=== PATIENT | female | born 1985 | race Caucasian/White ===

== ENCOUNTER 2017-11-24 18:05 | Inpatient (IN) | payer OTHER ==
[2017-11-24 20:46] VITALS: BMI 23.9
--- NOTE | 2017-11-24 20:59 | OBADHP ---
Datetime: 11/24/2017 20:55 Admit Comment, IP Provider: wiht IUP at 38+1 weeks, decreased movement, irreg contraction s primigravida GDMA1 - diet controlled denies family hx denies surg hx NKDA taking prenatals denies smoking drinking or drug use A/P: IUP at 38+1, decreased movement, GDMA1 IOL with cervidil fingersticks Q4 and insulin if needed EFM/TOCO/IVF/NPO plan of care discussed with patients private physician, Dr. Lena Gonzalez Pelvic Type - PN: Adequate Extremities - PN: Not Done Abdomen - PN: Normal Back - PN: Not Done Breast - PN: Not Done Lungs - PN: Not Done Heart - PN: Not Done Thyroid - PN: Not Done Neurologic - PN: Not Done HEENT - PN: Not Done General - PN: Normal Gestation - Est Wks by US: 38+1 Vital Signs Provider: Reviewed; Within Normal Limits IP Chief Complaint: Uterine contractions; Decreased movement FHR Category Provider Fetus A: Category I Genitourinary Exam: Normal DTRs - PN: Not Done EGA AdmitDate IP: 38.1 IP Adm Impression: Term, intrauterine IP Admit Plan: Admit to unit; Initiate labor induction protocol
[2017-11-24 21:41] LABS: HEMOGLOBIN 13.3 g/dL (11.0-16.0); MEAN CELL VOLUME 86.7 fL (81.0-99.0); MEAN CORPUSCULAR HEMOGLOBIN 29.3 pg (27.0-31.0); MEAN CORPUSCULAR HGB CONC 33.8 g/dL (33.0-37.0); MEAN PLATELET VOLUME 8.7 fL (7.2-11.7); RBC 4.55 Mil/uL (3.80-5.20); RED CELL DISTRIBUTION WIDTH 14.6 % (11.5-14.5); WHITE BLOOD COUNT 7.1 K/uL (4.8-10.8)
[2017-11-24 21:46] LABS: SQUAMOUS EPITHIAL 1 /hpf (0-5); URINE BACTERIA OCC (<OCC); URINE BILIRUBIN NEGATIVE (NEGATIVE); URINE CLARITY Clear (Clear); URINE COLOR Straw (YELLOW); URINE GLUCOSE (UA) 1+ mg/dL (Normal); URINE PROTEIN NEGATIVE (NEGATIVE); URINE UROBILINOGEN NORMAL mg/dL (0.2-1.0)
[2017-11-24 21:47] LABS: URINE BLOOD 1+ (NEGATIVE); URINE LEUKOCYTE ESTERASE TRACE Leu/uL (Negative)
[2017-11-24 21:52] LABS: ALB/GLOB RATIO 1.3 (1.0-2.1); ALBUMIN 3.6 g/dL (3.5-5.0); ALT/SGPT 20 U/L (9-52); AST/SGOT 18 U/L (14-36); BLOOD UREA NITROGEN 12 mg/dL (7-17); CALCIUM 9.5 mg/dl (8.6-10.4); GFR NON-AFRICAN AMERICAN > 60
[2017-11-24] MEDS ORDERED: Lactated Ringer's 1,000 ML IV SCH (22:15)
[2017-11-25] MEDS ORDERED: Nalbuphine HCL 10 mg/ml Ampule IVP ONE (01:31)
[2017-11-25] MEDS ORDERED: DiphenhydrAMINE 50 mg/ml Inj IVP STA (01:35)
[2017-11-25] MEDS ORDERED: Nalbuphine HCL 10 mg/ml Ampule ONE (01:41)
[2017-11-25] MEDS ORDERED: Bupivacaine HCl/FentaNYL Cit 100 ML EPI ONE (04:26)
[2017-11-25] MEDS ORDERED: Oxytocin 30 UNIT 30 UNITS/500 ML BAG IV SCH (08:00)
[2017-11-25] MEDS ORDERED: Oxytocin 30 UNIT 30 UNITS/500 ML BAG IV ONE (09:12)
--- NOTE | 2017-11-25 10:12 | OBHP ---
Datetime: 11/25/2017 10:10 Presentation-Admit: Vertex FHR - Baseline A Provider: 150 Amniotic Fluid Color, Provider: Clear Membranes, Provider: Ruptured Gestation - Est Wks by US: 38.2 Vital Signs Provider: Reviewed; Within Normal Limits NICHD Variability Prov Fetus A: Moderate 6-25bpm FHR Category Provider Fetus A: Category I NICHD Decel Fetus A IP Provider: None Dilatation, Provider: 6 Effacement, Provider: 90 Station, Provider: -1 Datetime: 11/24/2017 20:55 IP Adm Impression: Term, intrauterine IP Admit Plan: Admit to unit; Initiate labor induction protocol Admit Comment, IP Provider: wiht IUP at 38+1 weeks, decreased movement, irreg contraction s primigravida GDMA1 - diet controlled denies family hx denies surg hx NKDA taking prenatals denies smoking drinking or drug use A/P: IUP at 38+1, decreased movement, GDMA1 IOL with cervidil fingersticks Q4 and insulin if needed EFM/TOCO/IVF/NPO plan of care discussed with patients private physician, Dr. Lena Gonzalez agree wtih above gdma with increaisng blod sugars adn decreased movments admit for cervid pain magnmetn Pelvic Type - PN: Adequate Extremities - PN: Not Done Abdomen - PN: Normal Back - PN: Not Done Breast - PN: Not Done Lungs - PN: Not Done Heart - PN: Not Done Thyroid - PN: Not Done Neurologic - PN: Not Done HEENT - PN: Not Done General - PN: Normal EGA AdmitDate IP: 38.1 IP Indication for Induction: Maternal Diabetes IP Chief Complaint: Uterine contractions; Decreased movement Genitourinary Exam: Normal DTRs - PN: Not Done
--- NOTE | 2017-11-25 10:15 | OBPN ---
Datetime: 11/25/2017 10:10 IP Progress Impression: Normal progression of labor IP Procedures: Artificial ROM IP Progress Plan: Continue present management Membranes, Provider: Ruptured Amniotic Fluid Color, Provider: Clear FHR - Baseline A Provider: 150 Gestation - Est Wks by US: 38.2 Presentation-Admit: Vertex IP Progress Note Comment: pt seen and examiend, cervidl removed, s/p epdurla VSS VE: /-1 arom clear EFM: Page I atoC: q 3 min A/P @ 38+ wks IOL for GDMA -cont current jim gaston as per protocol Vital Signs Provider: Reviewed; Within Normal Limits FHR Category Provider Fetus A: Category I NICHD Variability Prov Fetus A: Moderate 6-25bpm Dilatation, Provider: 6 Effacement, Provider: 90 Station, Provider: -1 NICHD Decel Fetus A IP Provider: None
[2017-11-25] MEDS ORDERED: Lidocaine Hydrochloride 5 ML INJ ONE (14:59)
--- NOTE | 2017-11-25 15:25 | OBDS ---
DELIVERY PERSONNEL Delivery Doctor: Lena Gonzalez MD Remote Sensing Research Scientist: Cherry Gottlieb RN MATERNAL INFORMATION Delivery Anesthesia: Epidural Medications in Delivery: 30 units of pitocin in NS Placenta Cultured: No Maternal Complications: None Provider Comments: pt was fully dilated and pushing, verbal consent for epistiomty given. right medi o lateral epistomty perfomred. atrumatic, spontaneous deilvery of head, scarlett position. No nuchal cord noted. Atraumatic, spontaneous delivery of anterior followed by posterior shoulder followed by delive ry of the body. both oral and nasal passages of rocío baby were bulb suctioned. umbilical cord was clam ped and cut. baby hadned to mom on abdomen with rn assistance. Cord blood and cord gases collected an d sent x 2. Spontanesous delivery of intact placenta with membranes. Fundus firm, good hemosis, no coplications. Right mediolateral episotomy repaired with 2-0 and 3-0 chromic with local anesthesia of 1% lidocarine iwth epinephrine. Live male infant agpgars 9,9 ebl 300ml no complicatins LABOR SUMMARY EDC: 12/07/2017 00:00 No. Babies in Womb: 1 Labor Anesthesia: Epidural LABOR INFORMATION Reason for Induction: Maternal Diabetes Onset of Labor: 11/25/2017 07:22 Complete Dilatation: 11/25/2017 12:41 Cervical Ripening Agents: Cervidil (Annotations: cervidil inserted by Dr. Gonzalez) Oxytocin: Augmentation Group B Beta Strep: Negative Steroids Given: None Reason Steroids Not Administered: Not Applicable MEMBRANES Membranes Rupture Method: Artificial Rupture of Membranes: 11/25/2017 07:22 Length of Rupture (hrs): 7.42 Amniotic Fluid Color: Clear Amniotic Fluid Amount: Moderate Amniotic Fluid Odor: None STAGES OF LABOR Stage 1 hrs: 5 Stage 1 min: 19 Stage 2 hrs: 2 Stage 2 min: 6 Stage 3 hrs: 0 Stage 3 min: 3 Total Time in Labor hrs: 7 Total Time in Labor min: 28 BABY A INFORMATION Delivery Date/Time: 11/25/2017 14:47 Method of Delivery: Vaginal Born in Route : No : N/A Forceps: N/A Vacuum Extraction: N/A Shoulder Dystocia : No SHOULDER DYSTOCIA BABY A Infant Delivery Date/Time: 11/25/2017 14:47 PRESENTATION/POSITION BABY A Presentation: Cephalic Cephalic Presentation: Vertex Vertex Position: Right Occipital Anterior Breech Presentation: N/A PLACENTA INFORMATION BABY A Placenta Delivery Time : 11/25/2017 14:50 Placenta Method of Delivery: Expressed Placenta Status: Delivered SCORES BABY A Heart Rate 1 min: >100 bpm Resp Effort 1 min: Good Cry Reflex Irritability 1 min: Cough or Sneeze or Pulls Away Muscle Tone 1 min: Active Motion Color 1 min: Body [place], Extremities Blue Resuscitation Effort 1 min: Tactile Stimulation SCORE 1 MIN: 9 Heart Rate 5 min: >100 bpm Resp Effort 5 min: Good Cry Reflex Irritability 5 min: Cough or Sneeze or Pulls Away Muscle Tone 5 min: Active Motion Color 5 min: Body [place], Extremities Blue Resuscitation Effort 5 min: N/A SCORE 5 MIN: 9 INFORMATION BABY A Gestational Age at Delivery: 38.2 Gestational Status: Term Outcome : Liveborn Infant Condition : Stable Infant Sex: Male IDENTIFICATION/MEDS BABY A ID Band Number: [id number] ID Band Location: Left Leg; Left Arm Sensor Applied: Yes Sensor Number: [id number] Sensor Location : Cord Clamp Vitamin K Given : Aquamephyton 0.5 mg IM Erythromycin Given: Given Both Eyes WEIGHT/LENGTH BABY A Infant Birthweight (gms): 2945 Weight (lb): 6 Weight (oz): 8 Length Inches: 19.00 Length cms: 48.3 CORD INFORMATION BABY A No. Cord Vessels: 3 Nuchal Cord : N/A Cord Blood Taken: Yes Infant Suction: Mouth; Nose ASSESSMENT BABY A Infant Complications: None Physical Findings at Delivery: Caput Succedaneum Infant Respirations: Appears Normal [employer] Supervisor/ALS Called : No Care By: Bambi Barros RN Transferred To: Remains with Mother
[2017-11-25] MEDS ORDERED: Oxycodone/Acetaminophen 5/325 mg Tab PO PRN ×2 (15:26)
[2017-11-25] MEDS ORDERED: Oxycodone/Acetaminophen 5/325 mg Tab ONE (17:41)
[2017-11-25] MEDS: Benzocaine/Menthol 20%-0.5% Topical Spray (60 ml) TOP PRN (19:47)
[2017-11-26 08:38] VITALS: O2SAT 98
[2017-11-26 11:29] LABS: ALBUMIN 2.7 g/dL (3.5-5.0); ALT/SGPT 25 U/L (9-52); AST/SGOT 32 U/L (14-36); BLOOD UREA NITROGEN 9 mg/dL (7-17); CALCIUM 8.7 mg/dl (8.6-10.4); GFR NON-AFRICAN AMERICAN > 60
[2017-11-26 19:52] LABS: BASO % 0.2 % (0.0-2.0); EOS # 0.1 K/uL (0.0-0.7); LYMPH # 2.5 K/uL (1.0-4.3); LYMPH % 17.8 % (20.0-40.0); MEAN CELL VOLUME 86.3 fL (81.0-99.0); MEAN CORPUSCULAR HEMOGLOBIN 29.1 pg (27.0-31.0); MEAN CORPUSCULAR HGB CONC 33.8 g/dL (33.0-37.0); MEAN PLATELET VOLUME 8.4 fL (7.2-11.7); MONO # 1.1 K/uL (0.0-0.8); MONO % 7.6 % (0.0-10.0); NEUT # 10.2 K/uL (1.8-7.0); NEUT % 73.4 % (50.0-75.0); RBC 4.46 Mil/uL (3.80-5.20); RED CELL DISTRIBUTION WIDTH 14.7 % (11.5-14.5); WHITE BLOOD COUNT 13.9 K/uL (4.8-10.8)
[2017-11-27 00:03] VITALS: RESP 20
--- NOTE | 2017-11-27 15:02 | RAD ---
HISTORY: chest "heaviness" s/p nsd COMPARISON: No prior. TECHNIQUE: Chest PA and lateral FINDINGS: LUNGS: Probable medial right lower lobe atelectasis. Please note that chest x-ray has limited sensitivity for the detection of pulmonary masses. PLEURA: No significant pleural effusion identified. No definite pneumothorax . CARDIOVASCULAR: Heart size appears within normal limits. OSSEOUS STRUCTURES: No acute osseous abnormality identified. VISUALIZED UPPER ABDOMEN: Unremarkable. OTHER FINDINGS: None. IMPRESSION: Probable medial right lower lobe atelectasis.
[2017-11-27] MEDS: Benzocaine/Menthol 20%-0.5% Topical Spray (60 ml) TOP PRN (23:26)
--- NOTE | 2017-11-28 06:54 | OBPPN ---
Datetime: 11/27/2017 11:47 PP Pain Prov: Within normal limits PP Nausea Prov: Denies PP Flatus Prov: Yes PP BM Prov: Yes PP Breasts Prov: Normal PP Abdomen/Uterus Prov: Normal PP Lochia Prov: Normal PP Extremities Prov: Normal PP Progress Prov: Normal PP Comments Phys Exam Prov: ABD: Soft CVS: RRR Lungs: CTA BL PP Impression Prov: Normal progression PP Plan Prov: Continue present management PP Plan Other Prov: Obtain Chest xray PP Progress Note Prov: A/P: S/P Chest Heavyness upon walking Chest xray - If normal will plan to call Medical consult to r/o Cardiac causes Continue current management Incentive spirometer IP PP Procedures Comments: Chest x ray Vital Signs Provider PP: Reviewed Vital Signs Provider Details PP: Pt c/p chest heavyness while walking. No c/o defficulty breathing o r palpitations.
[2017-11-28 08:39] LABS: BASO # 0.1 K/uL (0.0-0.2); BASO % 0.7 % (0.0-2.0); EOS # 0.2 K/uL (0.0-0.7); HEMOGLOBIN 13.2 g/dL (11.0-16.0); LYMPH # 1.6 K/uL (1.0-4.3); LYMPH % 17.3 % (20.0-40.0); MEAN CELL VOLUME 87.1 fL (81.0-99.0); MEAN CORPUSCULAR HEMOGLOBIN 29.8 pg (27.0-31.0); MEAN CORPUSCULAR HGB CONC 34.2 g/dL (33.0-37.0); MEAN PLATELET VOLUME 8.2 fL (7.2-11.7); MONO # 0.5 K/uL (0.0-0.8); MONO % 5.2 % (0.0-10.0); NEUT # 6.8 K/uL (1.8-7.0); NEUT % 74.8 % (50.0-75.0); RBC 4.42 Mil/uL (3.80-5.20); RED CELL DISTRIBUTION WIDTH 14.6 % (11.5-14.5); WHITE BLOOD COUNT 9.1 K/uL (4.8-10.8)
[2017-11-28 08:51] LABS: ALB/GLOB RATIO 1.1 (1.0-2.1); ALBUMIN 3.1 g/dL (3.5-5.0); ALT/SGPT 34 U/L (9-52); AST/SGOT 32 U/L (14-36); BLOOD UREA NITROGEN 11 mg/dL (7-17); CALCIUM 8.9 mg/dl (8.6-10.4); GFR NON-AFRICAN AMERICAN > 60
[2017-11-28 08:54] VITALS: BP 109/69; PULSE 67; TEMP 98.4
[2017-11-28] MEDS: Benzocaine/Menthol 20%-0.5% Topical Spray (60 ml) TOP PRN (10:20)
--- NOTE | 2017-11-28 11:14 | OBPPN ---
Datetime: 11/28/2017 10:57 PP Pain Prov: Within normal limits PP Nausea Prov: Denies PP Flatus Prov: Yes PP BM Prov: No PP Breasts Prov: Not Done PP Heart Prov: Normal PP Lungs Prov: Normal PP Abdomen/Uterus Prov: Normal PP Lochia Prov: Normal PP Vulva/Perineum Prov: Normal PP CVA Tenderness Prov: Normal PP Extremities Prov: Normal PP C/S Incision Prov: Not Applicable PP Progress Prov: Abnormal PP Comments Phys Exam Prov: Fundus firm and non-tender Minimal lochia Lungs CTA but poor inspiratory effort PP Impression Prov: Normal progression; difficulties PP Plan Prov: consult; Discharge PP Progress Note Prov: PPD # 3. Seen and examined per Dr. Gonzalez's request S/P Denies any more heaviness of chest and feels much better than yesterday VSS, Afebrile, Aware of CXR finding of Atelectasis only and explained to her that needs deeper isi aths Using IS but not adequately and reviewed with her and understand better what to do.Advised to use it Q 2 hrs x 10-15 minutes Difficulty but drinks little to no water and not putting baby to breast Q 2 hrs as i nstructed Advised to increase po water intake (aware than milk and juice would not work) Advise to place baby to breast Q 2 hours for 15 mins on each breast and ATC and verbalized underst anding Seen by home energy consultant supervisor and started to use the Nipple Shield Aware of blood test WNL C/O of perineal pain and no sitz baths Sitz baths ordered as well as Motrin Will D/C home with instructions and Rx for Motrin and Colace, per Dr. Gonzalez IP PP Procedures: None
--- NOTE | 2017-11-28 11:16 | OBDCSUM ---
Datetime: 11/28/2017 11:11 Discharged to, Provider: Home Follow up at, Provider: Dr. Gonzalez Disch Instr Activity: Normal activity; May Shower Disch Instr Diet: Regular Discharge Instructions, Provider: Routine instructions given Discharge Diagnosis, Provider: Term Delivered Discharge Time: 11/28/2017 12:02 Follow up in weeks, Provider: 4-6 weeks Disch Referrals: None Contraception discussed, Prov: Yes Disch Activity Restrictions: No exercising; No lifting; Minimize stair-climbing; No sexual activity; Nothing in vagina - [place], tampons, douche Discharge Comment, Provider: PPD # 3. Seen and examined per Dr. Gonzalez's request S/P Denies any more heaviness of chest and feels much better than yesterday VSS, Afebrile, Aware of CXR finding of Atelectasis only and explained to her that needs deeper isi aths Using IS but not adequately and reviewed with her and understand better what to do.Advised to use it Q 2 hrs x 10-15 minutes Difficulty but drinks little to no water and not putting baby to breast Q 2 hrs as i nstructed Advised to increase po water intake (aware than milk and juice would not work) Advise to place baby to breast Q 2 hours for 15 mins on each breast and ATC and verbalized underst anding Seen by industrial methods consultant and started to use the Nipple Shield Aware of blood test WNL C/O of perineal pain and no sitz baths Sitz baths ordered as well as Motrin Will D/C home with instructions and Rx for Motrin and Colace, per Dr. Gonzalez Stable and Satisfactory condition and recovery Instructed to continue IS use at home for 3-4 weeks as well as perineal care as instructed. Discharge Diagnosis Prov Other: Atelectasis secondary to poor inspiratory effort Non-compliant Contraception after Delivery: Undecided
== END 2017-11-28 15:52 | disposition home or self-care (01) | DRG 806 ==
LOC: C.EROB 18:05 → C.4D 20:42 → C.4M 11-25 18:05
PROVIDERS: ADMIT Obstetrics & Gynecology; ATTEND Obstetrics & Gynecology
PROC: 10E0XZZ Delivery of Products of Conception, External Approach (ICD-10-PCS; principal; 2017-11-25)
DX: O24.420 Gestational diabetes mellitus in childbirth, diet controlled (principal); J98.11 Atelectasis; O36.8130 Decreased fetal movements, third trimester, not applicable or unspecified; Z91.19 Patient's noncompliance with other medical treatment and regimen; Z3A.38 38 weeks gestation of pregnancy; Z37.0 Single live birth